=== PATIENT | male | born 1955 | race Two or more races ===

== ENCOUNTER → 2024-03-31 | Outpatient (CLI) | payer MEDICARE, SELFPAY ==
[2024-03-31 14:36] LABS: Basophils # (Auto) 0.1 Thou/mm3 (0.0-0.2); Basophils % (Auto) 1 % (0-2.5); Eosinophils # (Auto) 0.2 Thou/mm3 (0.0-0.5); Eosinophils % (Auto) 2 % (0-10); Hematocrit 42.6 % (41.0-53.0); Hemoglobin 14.5 g/dL (13.5-16.0); Immature Granulocytes % (Auto) 1 % (0-0); Immature Granulocytes Auto 0.04 Thou/mm3 (0.00-0.00); Lymphocytes # (Auto) 1.8 Thou/mm3 (1.0-4.8); Lymphocytes % (Auto) 25 % (10-50); Mean Corpuscular Hemoglobin 30.1 pg (25.0-35.0); Mean Corpuscular Volume 89 fL (80-100); Monocytes # (Auto) 0.5 Thou/mm3 (0.0-0.8); Monocytes % (Auto) 7 % (0-12); Neutrophils # (Auto) 4.7 Thou/mm3 (1.8-7.7); Neutrophils % (Auto) 65 % (37-80); Nucleated Red Blood Cell % 0 /100 WBC (0); Platelet Count 192 Thou/mm3 (140-440); RDW Standard Deviation 44.4 fL (35.1-43.9); Red Blood Count 4.81 Miln/mm3 (4.50-5.90); White Blood Count 7.2 Thou/mm3 (3.8-10.6)
[2024-03-31 15:34] LABS: Alanine Aminotransferase 30 U/L (10-49); Albumin, Serum 4.2 gm/dL (3.4-4.8); Albumin/Globulin Ratio 1.8 (1.2-2.2); Alkaline Phosphatase 46 U/L (46-116); Anion Gap 4 (7-16); Aspartate Amino Transferase 23 U/L (0-34); BUN/Creatinine Ratio 19 Ratio (12-20); Bilirubin,Total 0.5 mg/dL (0.3-1.2); Blood Urea Nitrogen 19 mg/dL (9-23); Calcium 10.4 mg/dL (8.3-10.6); Calcium (Corrected) 10.4 mg/dL (8.5-10.1); Chloride 107 mMol/L (98-107); Globulin 2.4 gm/dL (2.3-3.5); Glucose 110 mg/dL (74-106); Osmolality,Calculated 277 (275-295); Sodium 137 mMol/L (136-145); Total Protein 6.6 gm/dL (5.7-8.2); Troponin I < 0.020 ng/mL (0.0-0.045); eGFR > 60 See Note
== END | disposition home or self-care (01) ==
PROVIDERS: PCP Family Medicine; Referring Provider Nurse Practitioner Family; Visit Provider Nurse Practitioner Family
DX: R07.9 Chest pain, unspecified (principal)
CPT/HCPCS: 36415; 80053; 84484; 85025

== ENCOUNTER → 2024-04-19 | Outpatient (CLI) | payer MEDICARE, SELFPAY ==
[2024-04-19 14:16] LABS: Misc Send Out* See Sep Rpt
[2024-04-19 14:52] LABS: Basophils # (Auto) 0.1 Thou/mm3 (0.0-0.2); Basophils % (Auto) 1 % (0-2.5); Eosinophils # (Auto) 0.2 Thou/mm3 (0.0-0.5); Eosinophils % (Auto) 3 % (0-10); Hematocrit 44.5 % (41.0-53.0); Immature Granulocytes % (Auto) 1 % (0-0); Immature Granulocytes Auto 0.06 Thou/mm3 (0.00-0.00); Lymphocytes # (Auto) 2.1 Thou/mm3 (1.0-4.8); Lymphocytes % (Auto) 26 % (10-50); Mean Corpuscular HGB Conc 33.7 g/dl (31.0-37.0); Mean Corpuscular Hemoglobin 30.1 pg (25.0-35.0); Mean Corpuscular Volume 89 fL (80-100); Monocytes # (Auto) 0.6 Thou/mm3 (0.0-0.8); Monocytes % (Auto) 7 % (0-12); Neutrophils % (Auto) 62 % (37-80); Nucleated Red Blood Cell % 0 /100 WBC (0); Platelet Count 206 Thou/mm3 (140-440); RDW Standard Deviation 44.1 fL (35.1-43.9); Red Blood Count 4.98 Miln/mm3 (4.50-5.90); White Blood Count 8.1 Thou/mm3 (3.8-10.6)
[2024-04-19 15:12] LABS: Alanine Aminotransferase 26 U/L (10-49); Albumin, Serum 4.4 gm/dL (3.4-4.8); Alkaline Phosphatase 50 U/L (46-116); Anion Gap 7 (7-16); Aspartate Amino Transferase 20 U/L (0-34); BUN/Creatinine Ratio 16 Ratio (12-20); Bilirubin,Total 0.6 mg/dL (0.3-1.2); Blood Urea Nitrogen 16 mg/dL (9-23); Calcium 9.9 mg/dL (8.3-10.6); Calcium (Corrected) 9.9 mg/dL (8.5-10.1); Carbon Dioxide 27.5 mMol/L (20.0-31.0); Cardiac Risk Estimate 3.6 RATIO (4.0-6.7); Chloride 103 mMol/L (98-107); Cholesterol 205 mg/dL (132-200); Globulin 2.2 gm/dL (2.3-3.5); Glucose 100 mg/dL (74-106); HDL Cholesterol 57 mg/dL (40-60); LDL Cholesterol,Calculated 131 mg/dL (0-130); Osmolality,Calculated 275 (275-295); Potassium 4.3 mMol/L (3.4-5.1); Sodium 137 mMol/L (136-145); Total Protein 6.6 gm/dL (5.7-8.2); Triglycerides 83 mg/dL (30-150); eGFR > 60 See Note
[2024-04-19 15:26] LABS: Glucose Estimated Average 117 mg/dL (80-131); Hemoglobin A1C 5.7 % Hgb (4.8-6.0)
== END | disposition home or self-care (01) ==
LOC: COPL 14:02
PROVIDERS: PCP Family Medicine; Referring Provider Surgery; Visit Provider Internal Medicine Cardiovascular Disease
DX: E78.5 Hyperlipidemia, unspecified (principal); I20.9 Angina pectoris, unspecified; R07.9 Chest pain, unspecified
CPT/HCPCS: 36415; 80053; 80061; 83036; 83695; 85025

== ENCOUNTER → 2024-09-27 | Outpatient (CLI) | payer MEDICARE, SELFPAY ==
[2024-09-27 14:39] LABS: Cardiac Risk Estimate 3.2 RATIO (4.0-6.7); Cholesterol 165 mg/dL (132-200); HDL Cholesterol 51 mg/dL (40-60); LDL Cholesterol,Calculated 90 mg/dL (0-130); Triglycerides 121 mg/dL (30-150)
== END | disposition home or self-care (01) ==
LOC: COPL 13:42
PROVIDERS: PCP Family Medicine; Referring Provider Internal Medicine Cardiovascular Disease; Visit Provider Internal Medicine Cardiovascular Disease
DX: E78.41 Elevated Lipoprotein(a) (principal); E78.5 Hyperlipidemia, unspecified; R93.1 Abnormal findings on diagnostic imaging of heart and coronary circulation
CPT/HCPCS: 36415; 80061

== ENCOUNTER → 2024-10-13 | Outpatient (CLI) | payer MEDICARE, SELFPAY ==
--- NOTE | 2024-10-13 16:33 | XR_ITS ---
Examination: Left elbow 3 views Technique: Elbow AP, oblique, lateral 3 views Exam date and time: October 13, 2024 1712 hours INDICATIONS: Left elbow pain after fall one week ago FINDINGS: Soft tissue swelling dorsal to the olecranon No acute fracture. No dislocation IMPRESSION: No acute fracture.
== END | disposition home or self-care (01) ==
PROVIDERS: PCP Nurse Practitioner Family; Referring Provider Nurse Practitioner Family; Visit Provider Nurse Practitioner Family
DX: S59.902A Unspecified injury of left elbow, initial encounter (principal); W19.XXXA Unspecified fall, initial encounter
CPT/HCPCS: 73080

== ENCOUNTER → 2024-11-02 | Outpatient (CLI) | payer MEDICARE, SELFPAY ==
[2024-11-02 14:43] LABS: Basophils # (Auto) 0.1 Thou/mm3 (0.0-0.2); Basophils % (Auto) 1 % (0-2.5); Eosinophils % (Auto) 1 % (0-10); Hematocrit 42.5 % (41.0-53.0); Hemoglobin 14.8 g/dL (13.5-16.0); Immature Granulocytes % (Auto) 2 % (0-0); Immature Granulocytes Auto 0.11 Thou/mm3 (0.00-0.00); Lymphocytes # (Auto) 1.2 Thou/mm3 (1.0-4.8); Lymphocytes % (Auto) 16 % (10-50); Mean Corpuscular HGB Conc 34.8 g/dl (31.0-37.0); Mean Corpuscular Hemoglobin 30.2 pg (25.0-35.0); Mean Corpuscular Volume 87 fL (80-100); Monocytes # (Auto) 0.5 Thou/mm3 (0.0-0.8); Monocytes % (Auto) 7 % (0-12); Neutrophils # (Auto) 5.4 Thou/mm3 (1.8-7.7); Neutrophils % (Auto) 74 % (37-80); Nucleated Red Blood Cell % 0 /100 WBC (0); Platelet Count 230 Thou/mm3 (140-440); RDW Standard Deviation 43.4 fL (35.1-43.9); White Blood Count 7.4 Thou/mm3 (3.8-10.6)
[2024-11-02 15:01] LABS: Alanine Aminotransferase 26 U/L (10-49); Albumin, Serum 4.2 gm/dL (3.4-4.8); Albumin/Globulin Ratio 1.8 (1.2-2.2); Alkaline Phosphatase 143 U/L (46-116); Anion Gap 7 (7-16); Aspartate Amino Transferase 21 U/L (0-34); BUN/Creatinine Ratio 16 Ratio (12-20); Bilirubin,Total 0.6 mg/dL (0.3-1.2); Blood Urea Nitrogen 16 mg/dL (9-23); Calcium 9.6 mg/dL (8.3-10.6); Calcium (Corrected) 9.6 mg/dL (8.5-10.1); Carbon Dioxide 26.1 mMol/L (20.0-31.0); Chloride 106 mMol/L (98-107); Globulin 2.4 gm/dL (2.3-3.5); Glucose 102 mg/dL (74-106); Osmolality,Calculated 278 (275-295); Potassium 4.2 mMol/L (3.4-5.1); Sodium 139 mMol/L (136-145); Thyroid Stimulating Hormone 1.99 uIU/mL (0.55-4.78); Total Protein 6.6 gm/dL (5.7-8.2); Uric Acid 3.9 mg/dL (3.7-9.2); eGFR > 60 See Note
[2024-11-02 15:04] LABS: Prostate Specific Antigen < 0.10 ng/mL (0-4.00)
== END | disposition home or self-care (01) ==
LOC: COPL 13:37
PROVIDERS: PCP Family Medicine; Referring Provider Nurse Practitioner Family; Visit Provider Nurse Practitioner Family
DX: Z00.00 Encounter for general adult medical examination without abnormal findings (principal); M10.00 Idiopathic gout, unspecified site; N40.0 Benign prostatic hyperplasia without lower urinary tract symptoms
CPT/HCPCS: 36415; 80053; 84153; 84443; 84550; 85025

== ENCOUNTER 2024-12-03 11:00 | Day surgery (SDC) | payer MEDICARE, SELFPAY ==
[2024-12-02 12:41] VITALS: BMI 32.3
[2024-12-03] VITALS (11 sets, daily range): BP systolic 127–154; BP diastolic 75–89; PULSE 64–96; RESP 12–19; TEMP 36.2–37; O2SAT 93–97; BMI 32.1
[2024-12-03] MEDS: MIDAZOLAM INJ 1 MG/ML VIAL 2 ML (ASD USE ONLY) 2 MG IVP (12:32)
[2024-12-03] MEDS: SODIUM CHLORIDE 0.9% 500 ML 500 ML 20 ML IV (12:38)
[2024-12-03] MEDS: fentaNYL CIT INJ 50 mCg/ML AMP 2ML IVP (12:48)
== END 2024-12-03 13:50 | disposition home or self-care (01) ==
PROVIDERS: PCP Family Medicine; Referring Provider Specialist; Visit Provider Specialist
PROC: 0DBE8ZX Excision of Large Intestine, Via Natural or Artificial Opening Endoscopic, Diagnostic (ICD-10-PCS; CPT 45380; principal; 2024-12-03 11:30)
DX: Z12.11 Encounter for screening for malignant neoplasm of colon (principal); K64.9 Unspecified hemorrhoids; K57.30 Diverticulosis of large intestine without perforation or abscess without bleeding
CPT/HCPCS: G0121; J1200; J2250; J3010; J7999

== ENCOUNTER → 2024-12-20 | Outpatient (CLI) | payer MEDICARE, SELFPAY ==
[2024-12-20 12:20] LABS: Cardiac Risk Estimate 3.1 RATIO (4.0-6.7); Cholesterol 170 mg/dL (132-200); HDL Cholesterol 55 mg/dL (40-60); LDL Cholesterol,Calculated 93 mg/dL (0-130); Triglycerides 111 mg/dL (30-150)
== END | disposition home or self-care (01) ==
PROVIDERS: PCP Family Medicine; Referring Provider Internal Medicine Cardiovascular Disease; Visit Provider Internal Medicine Cardiovascular Disease
DX: E78.41 Elevated Lipoprotein(a) (principal); E78.5 Hyperlipidemia, unspecified; I25.10 Atherosclerotic heart disease of native coronary artery without angina pectoris; R93.1 Abnormal findings on diagnostic imaging of heart and coronary circulation
CPT/HCPCS: 36415; 80061

== ENCOUNTER → 2025-02-28 | Outpatient (CLI) | payer MEDICARE, SELFPAY ==
--- NOTE | 2025-02-28 08:00 | EKG_ITS ---
[facility] Test Date: 2025-02-28 Pat Name: JEWELL STYLES Department: Room: - Gender: Male [employer] Technician: LAKEISHA : 1955 Requested By: Mirza Muñiz Order Number: [id number] Reading MD: Mirza Muñiz Measurements Intervals [place] Rate: 67 P: 25 [place]: 172 QRS: -4 QRSD: 96 T: 12 QT: 366 QTc: 389 Interpretive Statements SINUS RHYTHM Compared to ECG 06/25/2021 07:19:43 Incomplete right bundle-branch block no longer present /[id number]
== END | disposition home or self-care (01) ==
LOC: SEKG 07:48
PROVIDERS: PCP Family Medicine; Referring Provider Student in an Organized Health Care Education/Training Program; Visit Provider Student in an Organized Health Care Education/Training Program
DX: Z01.810 Encounter for preprocedural cardiovascular examination (principal); H25.811 Combined forms of age-related cataract, right eye
CPT/HCPCS: 93005

== ENCOUNTER → 2025-03-30 | Outpatient (CLI) | payer MEDICARE, SELFPAY ==
[2025-03-30 15:43] LABS: Cardiac Risk Estimate 1.7 RATIO (4.0-6.7); Cholesterol 90 mg/dL (132-200); HDL Cholesterol 52 mg/dL (40-60); LDL Cholesterol,Calculated 20 mg/dL (0-130); Triglycerides 90 mg/dL (30-150)
== END | disposition home or self-care (01) ==
LOC: COPL 13:03
PROVIDERS: PCP Family Medicine; Referring Provider Internal Medicine Cardiovascular Disease; Visit Provider Internal Medicine Cardiovascular Disease
DX: E78.41 Elevated Lipoprotein(a) (principal); E78.5 Hyperlipidemia, unspecified; I20.9 Angina pectoris, unspecified; R93.1 Abnormal findings on diagnostic imaging of heart and coronary circulation
CPT/HCPCS: 36415; 80061